=== PATIENT | female | born 1985 | race Hispanic/Latino ===

== ENCOUNTER 2025-01-17 06:26 | Day surgery (SDC) | payer BC, OTHER ==
[2025-01-15 11:10] VITALS: BP 122/61; PULSE 68; RESP 17; TEMP 97.5
[2025-01-15 11:18] LABS: BASOPHILS # (AUTO) 0.04 K/uL (0.00-0.20); BASOPHILS % (AUTO) 0.4 % (0.0-5.0); EOSINOPHILS # (AUTO) 0.31 K/uL (0.00-0.70); EOSINOPHILS % (AUTO) 2.9 % (0.0-8.0); HEMATOCRIT 35.7 % (36-48); IMMATURE GRANULOCYTE ABSOLUTE 0.04 K/uL (0-1); LYMPHOCYTES # (AUTO) 2.4 K/uL (1.0-4.8); LYMPHOCYTES % (AUTO) 22.6 % (21.0-51.0); MEAN CORPUSCULAR HEMOGLOBIN 30.3 pg (27.0-33.0); MEAN CORPUSCULAR HGB CONC 31.7 g/dL (32.0-36.0); MEAN CORPUSCULAR VOLUME 95.7 fL (79-99); MONOCYTES # (AUTO) 0.6 K/uL (0.1-1.0); MONOCYTES % (AUTO) 5.6 % (3.0-13.0); NEUTROPHILS # (AUTO) 7.3 K/uL (1.8-7.7); NEUTROPHILS % (AUTO) 68.1 % (40.0-77.0); PLATELET COUNT (AUTO) 263 K/uL (130-400); RED BLOOD CELL COUNT(AUTO) 3.73 MIL/uL (4.00-5.50); RED CELL DISTRIBUTION WIDTH 12.5 % (11.0-15.5); WHITE BLOOD COUNT (AUTO) 10.7 K/uL (4.8-10.8)
[2025-01-15 11:24] LABS: CREATININE 0.6 mg/dL (0.5-1.0); POTASSIUM 4.5 mmol/L (3.5-5.1)
[2025-01-15 11:33] LABS: INR 0.95 (0.85-1.15); PROTHROMBIN TIME 10.1 SEC (9.6-11.6)
[~2025-01-17] VITALS: Ht 157.5 cm; Wt 82.3 kg
[2025-01-17] VITALS (19 sets, daily range): BP systolic 108–130; BP diastolic 61–78; PULSE 57–77; RESP 14–19; TEMP 97.6–97.9
[~2025-01-17 06:26] MED LIST: CETI-89 PO; CHOL100046 PO; SPIR100T5 PO
[2025-01-17] MEDS: dexaMETHasone SOD PHOSPHATE 4 MG/ML 1ML VIAL ONE (07:25)
[2025-01-17] MEDS: SCOPOLAMINE HYDROBROMIDE 1 EACH ADH..PATCH TD ONE (07:26)
[2025-01-17] MEDS: PHENAZOpyridine HCL 200 MG TAB 200 MG TABLET ONE (07:26)
[2025-01-17] MEDS: ceFAZolin SODIUM 2 GM VIAL ONE (07:26)
[2025-01-17] MEDS: metRONIDazole 500MG/100ML BAG 100 ML ONE (07:26)
[2025-01-17] MEDS: LACTATED RINGERS 1000ML 1,000 ML IV ONE (07:26)
[2025-01-17] MEDS ORDERED: BUPIvacaine/PF 0.25% 30ML VIAL IJ ONE (07:39)
[2025-01-17] MEDS ORDERED: GABAPENTIN 300 MG CAPSULE ONE (07:45)
[2025-01-17] MEDS ORDERED: FENTanyl CITRate PF 50 MCG/1 ML 2ML VIAL ONE (07:49)
[2025-01-17] MEDS ORDERED: rocuRONium bROMide 10MG/1ML 5ML VL ONE ×2 (07:49→08:48)
[2025-01-17] MEDS ORDERED: LIDOCAINE PF 100MG/5ML (2%) SYRINGE 5ML ONE (07:49)
[2025-01-17] MEDS ORDERED: proPOFol 10 MG/ML 20ML VIAL IV ONE (07:49)
[2025-01-17] MEDS ORDERED: ketaMINE 50MG/ML SYRINGE 50 MG/ML DISP.SYRIN ONE (07:50)
[2025-01-17] MEDS: BUPIvacaine/PF 0.25% 30ML VIAL IJ ONE (07:55)
[2025-01-17] MEDS ORDERED: ondanSETRON 4MG INJ ONE (08:05)
[2025-01-17] MEDS ORDERED: GLYCOPYRROLATE 0.2 MG/ML 5 ML VIAL ONE (08:37)
[2025-01-17] MEDS ORDERED: NEOSTIGMINE METHYLSULFATE 1MG/ML IV ONE (08:37)
[2025-01-17] MEDS ORDERED: dexmedeTOMIDine HCL 200 MCG/2 ML VIAL IV ONE (09:06)
[2025-01-17] MEDS ORDERED: ketOROlac 30MG VIAL (30MG/ML) ONE (10:11)
--- NOTE | 2025-01-17 10:39 | OP ---
Operative Note: DATE OF PROCEDURE: 01/17/25 SURGEON: ARACELI WEBB MD HAIR SAMPLE MATCHER: [none] ANESTHESIA: [general] ANESTHESIOLOGIST/CONSTRUCTION QUALITY CONTROL MANAGER: [general] PREOPERATIVE DIAGNOSIS: [abnormal uterine bleeding, uterine fibroid] POSTOPERATIVE DIAGNOSIS: [same plus adhesions and left ovarian simple cyst] SYNOPSIS: [na] PROCEDURE: [daVinci Total Laparoscopic Hysterectomy, Bilateral salpingectomy, lysis of adhesions, cystoscopy] ESTIMATED BLOOD LOSS: [less than 10 cc] INDICATIONS: [na] DESCRIPTION OF PROCEDURE: [The patient and her were visited in the holding area and the planned operation stated in plain Portuguese, she had no additional questions and was ready to proceed. She was taken to the operating room and placed under general anesthesia and prepped and draped in the usual sterile fashion in the dorsal lithotomy position in the [facility]. A time out was taken to confirm the patient's identity, her allergies, the planned operation and medication administration. Right angles were placed in the vagina and the cervix grasped with a single tooth tenaculum, the uterus sounded to about 9-10 cm and the large v-care manipulator was sutured into position, and a arechiga catheter was placed draining clear urine, the instruments were removed, the surgeon's gloves were changed, confirmation of decompression ofthe stomach was done, the patient was placed flat and infiltration with 0.25% marcaine at the midclavicular line on the left about 2 cm below the costal margin was done, an 8 mm incision was made and the veress needle was passed and sterile saline and the drop test were done, the abdomen was insufflated to a good dome and the direct visualization trocar, camera and sleeve were introduced with no trauma noted and with finding of a curtain of omentum adhesed in the umbilical area. The patient was placed in just enough Trendelenberg position to maintain the small bowel out of the pelvis. Infiltration incision and placement of a right and then left sided davinci and luh closes was done atraumatically under direct visualization and the monopolar scissors with the bovie cautery for cautery was used to initially lyse adhesions enough to ensure the robot could access the remaining adhesions. The robot was docked and the fenestrated bipolar and monopolar scissors were introduced and the remainder of the adhesions were lysed. In the process mesh which was protruding more than a centimeter from the anterior abdominal wall was encountered and then the mesh was avoided for the remainder of the adhesiolysis. The uterus and pelvis were inspected with findings of a mildly enlarged uterus, normal right tube and ovary and left tube interrupted close to the uterus and a small remnant of fimbria over the top of an approx 3-4 cm simple ovarian cyst, the cyst was ruptured and drainedfor clear fluid, the tubal remnant was excised and brought out of the abdomen. The right tube was dissected from its ovarian and broad ligament connections to the level of the uterus. The vessel sealer was used to coagulate and divide the round, uterovarin and broad ligaments bilaterally until 3[address] the cervix. The anterior and posterior limbs of the broad ligament were divided and the posterior incision carried below the level of the edge of the manipular and anteriorly to start the bladder flap. The uterine arteries were isolated and coagulated bilaterally and the bladder flap was advanced on the left, the left uterine artery was divided and the vagina entered, a v locksuture was placed at that vaginal angle and a similar procedure, completing the bladder advancement and then dividing the uterine artery and entering the vagina was done and a v- lock was placed. The vlock on the left side broke and a second vlock was started on that side after the uterus was amputatedfrom the vagina and brought out the vagina andthe area copiously irrigated. The vlocks were overlapped and two figure of eight sutures of 2-0 pds were placed to the left and right of the midline. The area was irrigated and inspected and all was hemostatic. The sutures were brought out of the abdomen and the abdomen desufflated. Cystoscopy was performed with normal interior of the bladder and bilateral ureteral orifices ejecting yellow urine. The sleeves were removed from the abdomen and the luh closes were tied. The incisions were closed with 4-0 monocryl and the patient was awakened and taken to the recovery room in stable condition. Sponge, lap and needle counts were correct at the end of the case. The patient's was called and notified of the patient's stability. Araceli Webb MD FACOG FACS ] ARACELI WEBB MD Jan 17, 2025 10:39
--- NOTE | 2025-01-17 11:25 | NUR ---
PATIENT ARRIVED TO DAYPATIENT VIA STRETCHER BY JANESSA HUITRON. PATIENT AAOX3, VITAL SIGNS STABLE, ABDOMINAL BINDER IN PLACE. INCISIONS X 3 TO ABDOMEN, APPROXIMATED WITH DERMABOND. NO BLEEDING OR DRAINAGE NOTED.
[2025-01-17] MEDS: ondanSETRON 4MG INJ ONE (12:22)
[2025-01-17] MEDS: acetaMINOPHEN 500 MG TABLET ONE (12:26)
[2025-01-17] MEDS ORDERED: ondanSETRON 4MG INJ IVP ONE (12:30)
[2025-01-17] MEDS ORDERED: acetaMINOPHEN 500 MG TABLET PO ONE (12:30)
[2025-01-17] MEDS ORDERED: LORazepam 1 MG TABLET PO PRN (13:30)
[2025-01-17] MEDS ORDERED: ketOROlac 15MG/ML VIAL (15MG/ML) IV SCH ×2 (13:30→18:30)
[2025-01-17] MEDS ORDERED: acetaMINOPHEN 500 MG TABLET PO SCH (13:30)
[2025-01-17] MEDS ORDERED: ondanSETRON 4MG INJ IV PRN (13:30)
--- NOTE | 2025-01-17 14:02 | NUR ---
PATIENT DISCHARGED FROM FACILITY VIA WHEELCHAIR BY HOMER NOYOLA AND ASSISTED INTO PRIVATE VEHICLE DRIVEN BY SPOUSE
== END 2025-01-17 14:00 | disposition home or self-care (01) ==
LOC: DAH 06:26
PROVIDERS: ATTEND Obstetrics & Gynecology
DX: N93.8 Other specified abnormal uterine and vaginal bleeding (principal); N72 Inflammatory disease of cervix uteri; D25.9 Leiomyoma of uterus, unspecified; N83.202 Unspecified ovarian cyst, left side; F41.9 Anxiety disorder, unspecified; Z88.8 Allergy status to other drugs, medicaments and biological substances; Z79.01 Long term (current) use of anticoagulants; Z79.899 Other long term (current) drug therapy
CPT/HCPCS: 80048; 84703; 85025; 85610; 85730; 86850; 86900; 86901; 36415; 58571; 88307; A6260; J1100; J1885; A4663; J7030; J7120 ×2; A4344; A4215 ×2; J3010; J0665 ×2; J3490 ×6; J2003; J2704; J2405 ×2; J2710; J2270; J0690; A4649 ×4; A4930; A4222; A4221; A4216; A4600; A4223 ×2; S2900